=== PATIENT | female | born 1965 | race Caucasian/White ===

== ENCOUNTER 2017-11-05 12:43 | Emergency (ER) | payer OTHER ==
[~2017-11-05] VITALS: Ht 152.4 cm; Wt 68.0 kg
[~2017-11-05 12:43] MED LIST: FLEXERIL PO; IBUPROFEN 800800 MG PO; NAPROSYN500 MG PO; NORFLEX100 MG PO
[2017-11-05 12:50] VITALS: BP 130/57
[2017-11-05] MEDS ORDERED: BACTRIM DS TAB1 EACH PO (13:11)
== END 2017-11-05 13:18 | disposition home or self-care (01) ==
LOC: M.ERS 12:43
DX: L02.411 Cutaneous abscess of right axilla (principal); F17.210 Nicotine dependence, cigarettes, uncomplicated

== ENCOUNTER 2018-10-04 18:25 | Emergency (ER) | payer OTHER ==
[~2018-10-04] VITALS: Ht 152.4 cm; Wt 77.1 kg
[~2018-10-04 18:25] MED LIST changes: +BACTRIM DS TAB1 EACH PO
[2018-10-04] MEDS ORDERED: NEURONTIN100 MG PO (18:36)
[2018-10-04] MEDS ORDERED: PENICILLIN V P500 MG PO (18:44)
[2018-10-04] MEDS ORDERED: IBUPROFEN 800800 M1 PO (18:44)
[2018-10-04] MEDS ORDERED: NORCO 5-325 TA1 EAC1 PO (18:44)
[2018-10-04 18:47] VITALS: BP 137/76
[2018-10-05] MEDS ORDERED: CLEOCIN HCL150 MG PO (12:54)
== END 2018-10-04 18:49 | disposition home or self-care (01) ==
LOC: M.ERS 18:25
DX: K02.9 Dental caries, unspecified (principal); R22.0 Localized swelling, mass and lump, head

== ENCOUNTER 2018-10-05 12:32 | Emergency (ER) | payer OTHER ==
[~2018-10-05] VITALS: Ht 152.4 cm; Wt 74.8 kg
[~2018-10-05 12:32] MED LIST changes: +IBUPROFEN 800800 M1 PO; +NEURONTIN100 MG PO; +NORCO 5-325 TA1 EAC1 PO; +PENICILLIN V P500 MG PO
[2018-10-05] MEDS ORDERED: CLEOCIN HCL150 MG PO (12:54)
[2018-10-05 13:18] VITALS: BP 143/72
== END 2018-10-05 13:18 | disposition home or self-care (01) ==
LOC: M.ERS 12:32
DX: K04.7 Periapical abscess without sinus (principal); F17.200 Nicotine dependence, unspecified, uncomplicated